=== PATIENT | male | born 1980 | race Asian ===

== ENCOUNTER 2018-03-30 21:09 | Emergency (ER) | payer SELFPAY ==
[~2018-03-30] VITALS: Ht 180.3 cm; Wt 90.9 kg
[2018-03-30 21:10] VITALS: BP 166/94
[2018-03-30] MEDS ORDERED: IBUPROFEN 600 MG TABLET PO ONE (22:15)
== END 2018-03-30 23:21 | disposition left against medical advice (07) ==
LOC: EMS 21:10
DX: S86.811A Strain of other muscle(s) and tendon(s) at lower leg level, right leg, initial encounter (principal); M25.461 Effusion, right knee; F15.10 Other stimulant abuse, uncomplicated; F12.90 Cannabis use, unspecified, uncomplicated; F17.210 Nicotine dependence, cigarettes, uncomplicated; X58.XXXA Exposure to other specified factors, initial encounter; Y93.89 Activity, other specified; Y92.89 Other specified places as the place of occurrence of the external cause; Y99.8 Other external cause status
CPT/HCPCS: 29530